=== PATIENT | male | born 1990 | race Caucasian/White ===

== ENCOUNTER 2020-09-28 20:49 | Emergency (ER) | payer SELFPAY ==
[~2020-09-28] VITALS: Ht 182.9 cm; Wt 100.0 kg
[2020-09-28 20:57] VITALS: BP 153/67
--- NOTE | 2020-09-28 21:15 | PHYS DOC ---
Past Medical History Past Medical History: No Pertinent History Past Surgical History: No Surgical History Smoking Status: Unknown if ever smoked Alcohol Use: None General Adult EDM: Chief Complaint: DRUG ABUSE HPI: HPI: Patient is a 30 year old male who presents with was at the [employer] stealing from the store with his girlfriend when he was caught by a off-duty commander [employer]. Patient began fighting with the officer and he was arrested and put in handcuffs. Shortly after the patient was arrested he began having chest pain. Patient was brought to the emergency room for evaluation. [facility] commander police reserves is in the room with the patient and the patient is in handcuffs. Patient would not answer any of my questions. The commander police [employer] stated that there was no fight or injuries to the patient during the altercation. Review of Systems: Review of Systems: Constitutional: Denies fever or chills. [] Eyes: Denies change in visual acuity. [] HENT: Denies nasal congestion or sore throat. [] Respiratory: Denies cough or shortness of breath. [] Cardiovascular: Denies chest pain or edema. [] GI: Denies abdominal pain, nausea, vomiting, bloody stools or diarrhea. [] : Denies dysuria. [] Musculoskeletal: Denies back pain or joint pain. + Bilateral shoulder pain [] Integument: Denies rash. [] Neurologic: Denies headache, focal weakness or sensory changes. [] Endocrine: Denies polyuria or polydipsia. [] Lymphatic: Denies swollen glands. [] Psychiatric: Denies depression or anxiety. [] Heart Score: Risk Factors: Risk Factors: DM, Current or recent (<one month) smoker, HTN, HLP, family history of CAD, obesity. Risk Scores: Score 0 - 3: 2.5% MACE over next 6 weeks - Discharge Home Score 4 - 6: 20.3% MACE over next 6 weeks - Admit for Clinical Observation Score 7 - 10: 72.7% MACE over next 6 weeks - Early Invasive Strategies Current Medications: Current Medications Medications (Trade) Dose Ordered Sig/Taya Start Time Stop Time Status Last Admin Dose Admin Methylprednisolone Sodium Succinate (SOLU-Medrol 125MG VIAL) 125 mg 1X ONCE 09/28/20 21:15 09/28/20 21:16 UNV Physical Exam: PE: Constitutional: Well developed, well nourished, no acute distress, non-toxic appearance. [] HENT: Normocephalic, atraumatic, bilateral external ears normal, oropharynx moist, no oral exudates, nose normal. [] Eyes: PERRLA, EOMI, conjunctiva normal, no discharge. [] Neck: Normal range of motion, no tenderness, supple, no stridor. [] Cardiovascular:Heart rate regular rhythm, no murmur [] Lungs & Thorax: Bilateral breath sounds clear to auscultation [] Abdomen: Bowel sounds normal, soft, no tenderness, no masses, no pulsatile masses. [] Skin: Warm, dry, no erythema, no rash. [] Back: No tenderness, no CVA tenderness. [] Extremities: No tenderness, no cyanosis, no clubbing, ROM intact, no edema. [] Neurologic: Alert and oriented X 3, normal motor function, normal sensory function, no focal deficits noted. [] Psychologic: Affect normal, judgement normal, mood normal. Normal physical exam [] EKG: EKG: [] Radiology/Procedures: Radiology/Procedures: [] Course & Med Decision Making: Course & Med Decision Making Pertinent Labs and Imaging studies reviewed. (See chart for details) See HPI. After the commander police [employer] left and took the patient out of handcuffs, he suddenly stood up and stated that he wanted to leave and began rinsing out his mouth with water. He is ambulatory with a steady gait. He is alert and oriented x4. Speaks in full clear sentences. Answers my questions appropriately now. Patient denies chest pain, nausea, vomiting, diarrhea, fever, cough, abdominal pain, back pain, neck pain, headache, dizziness, vision changes, numbness or tingling. I asked the patient if you would like to be evaluated in the ED. He stated no. He states he just has lateral shoulder pain from his arms to being pulled back behind him to be handcuffed. Patient is moving all arms with full range of motion of bilateral shoulders. There is no dislocation or deformities or swelling. Patient signed out AMA. [] Dragon Disclaimer: Dragon Disclaimer: This electronic medical record was generated, in whole or in part, using a voice recognition dictation system. Departure Departure Impression: Primary Impression: Shoulder pain, bilateral Qualified Codes: M25.511 - Pain in right shoulder; M25.512 - Pain in left shoulder Disposition: 07 AMA/ELOPED/LWBS Condition: STABLE LESLIE GUZMÁN APRN Sep 28, 2020 21:15
[2020-09-28] MEDS ORDERED: methylPREDNISolone SOD SUCC PF 125 MG/2 ML VIAL. IV ONE (21:30)
== END 2020-09-28 21:15 | disposition left against medical advice (07) ==
LOC: ER 20:49
DX: M25.512 Pain in left shoulder (principal); M25.511 Pain in right shoulder; R07.89 Other chest pain; G89.11 Acute pain due to trauma; Y04.0XXA Assault by unarmed brawl or fight, initial encounter; Y93.89 Activity, other specified; Y92.89 Other specified places as the place of occurrence of the external cause; Y99.8 Other external cause status
CPT/HCPCS: 99283